=== PATIENT | female | born 1975 | race Two or more races ===

== ENCOUNTER 2017-02-14 11:46 | Emergency (ER) | payer SELFPAY ==
[~2017-02-14] VITALS: Ht 175.3 cm; Wt 92.4 kg
[2017-02-14 12:58] LABS: HEMOGLOBIN 13.9 G/DL (11.9-15.5); MCH 31.4 PG (29.0-34.0); MCHC 33.9 G/DL (30.0-36.0); MCV 92.6 FL (83-99); PLATELET COUNT 292 K/uL (156-360); RBC DIS.WIDTH-CV 13.1 % (11.8-14.6); RBC DIS.WIDTH-SD 44.4 % (39-53); RED BLOOD COUNT 4.43 M/uL (3.80-5.20); WHITE BLOOD COUNT 10.1 K/uL (4.1-10.2)
[2017-02-14 13:23] LABS: TROP-I INTERPRETATION NEGATIVE; TROPONIN-I < 0.01 ng/mL (0.0-0.30)
[2017-02-14 14:29] VITALS: BP 144/91
[2017-02-14 15:04] LABS: CHLORIDE 103 mEq/L (99-109); POTASSIUM 4.2 mEq/L (3.7-5.4); SODIUM 138 mEq/L (136-147)
[2017-02-14 15:05] LABS: GLUCOSE 89 mg/dL (70-99)
[2017-02-14 15:09] LABS: CREATININE 0.7 mg/dL (0.6-1.3)
[2017-02-14 15:10] LABS: UREA NITROGEN (BUN) 13 mg/dL (9-23)
[2017-02-14 15:11] LABS: GFR ESTIMATE (CALCULATED) > 59 mL/min/
== END 2017-02-14 14:24 | disposition left against medical advice (07) ==
LOC: EME 11:46
DX: R07.9 Chest pain, unspecified (principal); R06.02 Shortness of breath; F17.200 Nicotine dependence, unspecified, uncomplicated
CPT/HCPCS: 71046; 80048; 84484; 85027; 93005; 99281; 99283